=== PATIENT | male | born 1995 | race Caucasian/White ===

== ENCOUNTER 2018-04-12 13:24 | Emergency (ER) | payer OTHER ==
[~2018-04-12] VITALS: Ht 160 cm; Wt 61.4 kg
[2018-04-12 13:30] VITALS: BP 113/63
== END 2018-04-12 15:17 | disposition home or self-care (01) ==
LOC: EMS 13:25
DX: H93.12 Tinnitus, left ear (principal)
CPT/HCPCS: 99281